=== PATIENT | female | born 1995 | race Caucasian/White ===

== ENCOUNTER 2020-05-06 17:39 | Emergency (ER) | payer MEDICAID ==
[~2020-05-06] VITALS: Ht 190.5 cm; Wt 167.4 kg
[2020-05-06 18:20] VITALS: BP 163/103
--- NOTE | 2020-05-06 20:12 | NUR ---
NOT IN LOBBY WHEN CALLED
--- NOTE | 2020-05-06 20:25 | NUR ---
NOT IN LOBBY WHEN CALLED
--- NOTE | 2020-05-06 20:31 | NUR ---
NOT IN LOBBY WHEN CALLED
== END 2020-05-06 20:32 | disposition left against medical advice (07) ==
LOC: ED 20:26
DX: F22 Delusional disorders (principal)
CPT/HCPCS: 99281

== ENCOUNTER 2020-05-07 04:14 | Emergency (ER) | payer MEDICAID ==
[~2020-05-07] VITALS: Ht 190.5 cm; Wt 166.0 kg
[2020-05-07 04:16] VITALS: BP 166/93
== END 2020-05-07 06:46 | disposition home or self-care (01) ==
LOC: ED 04:44
DX: F25.9 Schizoaffective disorder, unspecified (principal); Z72.9 Problem related to lifestyle, unspecified
CPT/HCPCS: 99281

== ENCOUNTER 2020-05-30 18:30 | Emergency (ER) | payer MEDICAID ==
[~2020-05-30] VITALS: Ht 190.5 cm; Wt 170.0 kg
[2020-05-30 18:40] VITALS: BP 152/92
--- NOTE | 2020-05-30 18:54 | NUR ---
ALISSA FROM [facility]. 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 SHE BELIEVES IT IS FROM SOME WITCH CRAFT SHE WAS DOING EARLIER BEFORE THAT OR FROM HER BENIGN HEAD TUMOR. BLEEDING HAS SINCE BEEN CONTROLLED AND PT IS CURRENTLY SITTING IN BED WATCHING TV.
--- NOTE | 2020-05-30 19:18 | NUR ---
PT WALKED TO BATHROOM AND BACK TO ROOM.
[2020-05-30] MEDS ORDERED: OXYMETAZOLINE NASAL SPRAY 0.05%,30ML ONE (19:32)
== END 2020-05-30 19:44 | disposition home or self-care (01) ==
LOC: ED 19:34 → MERGE 19:34 → ED 19:44
DX: R04.0 Epistaxis (principal)
CPT/HCPCS: 30901; 99284

== ENCOUNTER 2020-07-12 00:57 | Emergency (ER) | payer MEDICAID ==
[~2020-07-12] VITALS: Ht 190.5 cm; Wt 168.0 kg
[2020-07-12 01:01] VITALS: BP 119/82
--- NOTE | 2020-07-12 01:32 | NUR ---
CC OF NEEDING MED REFILL AND "CHECK MY HEAD FOR SLEEP DEPRIVATION", AND STATES "I'M REALLY LOOSING IT". STATES BEEN OFF MEDS FOR 1 MONTH.
--- NOTE | 2020-07-12 01:47 | NUR ---
REPORT GIVEN TO NEIDA BHARDWAJ
--- NOTE | 2020-07-12 01:52 | NUR ---
REPORT FROM [facility] OF PT
== END 2020-07-12 02:15 | disposition home or self-care (01) ==
LOC: ED 01:11
DX: F25.9 Schizoaffective disorder, unspecified (principal); Z76.0 Encounter for issue of repeat prescription; Z72.9 Problem related to lifestyle, unspecified; F17.210 Nicotine dependence, cigarettes, uncomplicated
CPT/HCPCS: 99281; 99406

== ENCOUNTER 2020-07-14 23:15 | Emergency (ER) | payer MEDICAID ==
[~2020-07-14] VITALS: Ht 190.5 cm; Wt 175.0 kg
--- NOTE | 2020-07-14 23:21 | NUR ---
biba. pt slipped in the shower AT [facility] and heard something crack in rt knee. CMS INTACT. GOFF. A&OX4. DENIES HEADE INJURY, LOC, AND BLURRED VISION REPORTS HAVING PAIN WHEN PUTTING WEIGHT ON RT FOOT. PT GIVEN 1G TYLENOL, 600 MG IBUPROFEN, AND COLD PACK APPLIED TO RT KNEE
[2020-07-14] MEDS ORDERED: IBUPROFEN 800 MG TABLET PO ONE (23:30)
--- NOTE | 2020-07-15 00:15 | NUR ---
PT SLEEPING IN BED. ATTACHED TO MONITORS. VSS. PT IN NAD. CALL LIGHT WITHIN REACH. PT CONDITION UNCHANGED.
[2020-07-15 00:51] VITALS: BP 133/75
--- NOTE | 2020-07-15 00:52 | NUR ---
Patient given discharge instructions and they have confirmed that they understand the instructions. Patient ambulatory with crutches. pt nad, denies additional questions or needs, provided taxi voucher, snacks and blanket for comfort.
== END 2020-07-15 01:01 | disposition home or self-care (01) ==
LOC: ED 23:45
DX: G89.11 Acute pain due to trauma (principal); M25.461 Effusion, right knee; Z72.9 Problem related to lifestyle, unspecified; F17.210 Nicotine dependence, cigarettes, uncomplicated; Z59.0 Homelessness; E66.01 Morbid (severe) obesity due to excess calories; Z68.42 Body mass index [BMI] 45.0-49.9, adult; W01.0XXA Fall on same level from slipping, tripping and stumbling without subsequent striking against object, initial encounter; Y93.89 Activity, other specified; Y92.009 Unspecified place in unspecified non-institutional (private) residence as the place of occurrence of the external cause; Y99.8 Other external cause status
CPT/HCPCS: 29530; 99283

== ENCOUNTER 2020-07-15 02:42 | Emergency (ER) | payer MEDICAID ==
[~2020-07-15] VITALS: Ht 190.5 cm; Wt 175.0 kg
--- NOTE | 2020-07-15 03:06 | NUR ---
PT CONTINUES TO BE AGGRESSIVE C STAFF. "I CAN GET A 911 OPERATOR RIGHT NOW AND SRUTHI YOU FOR NOT SEEING ME". ATTEMPTING TO EXPLAIN THAT PT WILL BE SEEN AGAIN, BUT DISCHARGED, AGAIN. PT CONTINUES TO SHOUT AT STAFF, "YOU ADMIT WOMAN WHO HAVE THINGS FALL OUT OF THEIR TWATS...I CANT KEEP MY KNEE UP ON A PARK BENCH". UNABLE TO OBTAIN ANY MORE HISTORY OR A SET OF VITALS. SECURITY ESCULATING SITUATION TO [employer].
--- NOTE | 2020-07-15 03:11 | NUR ---
ESCORTED OUT OF [facility].
== END 2020-07-15 03:13 | disposition home or self-care (01) ==
LOC: ED 03:05
DX: G89.11 Acute pain due to trauma (principal); M25.561 Pain in right knee; F17.210 Nicotine dependence, cigarettes, uncomplicated; Z72.9 Problem related to lifestyle, unspecified; W18.30XA Fall on same level, unspecified, initial encounter; Y93.89 Activity, other specified; Y92.89 Other specified places as the place of occurrence of the external cause; Y99.8 Other external cause status
CPT/HCPCS: 99406

== ENCOUNTER 2020-07-15 03:40 | Emergency (ER) | payer MEDICAID ==
[~2020-07-15] VITALS: Ht 182.9 cm; Wt 110.0 kg
--- NOTE | 2020-07-15 03:42 | NUR ---
PT ATTEMPTING TO CHECK-IN, BECOMING VERBALLY AGGRESSIVE C SECURITY. 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 PT ALSO BIT SECURITY ON RIGHT HAND, +SKIN BROKEN IN SEVERAL PLACES C BRUISING. PT TAKEN TO GROUND, DETAINED UNTIL [employer] ARRIVED. PA AWARE, ORDERS FOR LAB DRAW BEING PLACED.
--- NOTE | 2020-07-15 03:59 | NUR ---
LABS DRAWN & TAKEN TO [facility] BY [facility].
== END 2020-07-15 04:01 | disposition home or self-care (01) ==
LOC: ED 03:55
DX: Z53.21 Procedure and treatment not carried out due to patient leaving prior to being seen by health care provider (principal)
CPT/HCPCS: 36415; 86803; 87340; 87806; G0475